=== PATIENT | female | born 1935 | race American Indian/Alaskan Native ===

== ENCOUNTER 2022-07-27 23:51 | Emergency (ER) | payer MEDICARE ==
[2022-07-28] MEDS ORDERED: ONDANSETRON 4 MG/2 ML INJ IV ONE (01:45)
[2022-07-28] MEDS ORDERED: SODIUM CHLORIDE 0.9% 1000 ML 1,000 ML IV ONE (01:45)
[2022-07-28] MEDS ORDERED: MORPHINE 4 MG/1 ML INJ IV ONE (01:45)
[2022-07-28 02:51] LABS: Basophils % (Auto) 0.9 % (0.0-1.8); Eosinophils # (Auto) 0.2 K/mm3 (0.0-0.4); Eosinophils % (Auto) 3.9 % (0.0-4.3); Hematocrit 35.1 % (30.3-42.9); Hemoglobin 11.1 gm/dl (10.1-14.3); Lymphocytes # (Auto) 1.4 K/mm3 (1.2-5.4); Lymphocytes % (Auto) 30.3 % (13.4-35.0); Mean Corpuscular HGB Conc 32 % (30-34); Mean Corpuscular Volume 83 fl (79-97); Monocytes # (Auto) 0.5 K/mm3 (0.0-0.8); Monocytes % (Auto) 9.5 % (0.0-7.3); Platelet Count 283 K/mm3 (140-440); Red Blood Count 4.25 M/mm3 (3.65-5.03); Red Cell Distribution Width 14.4 % (13.2-15.2)
[2022-07-28 03:03] LABS: Alanine Aminotransferase 7 units/L (7-56); Albumin 3.8 g/dL (3.9-5); Blood Urea Nitrogen 12 mg/dL (7-17); Calcium 9.7 mg/dL (8.4-10.2); Hemolysis Index 5
[2022-07-28 03:04] LABS: BUN/Creatinine Ratio 24; Bilirubin,Direct < 0.2 mg/dL (0-0.2)
[2022-07-28 04:03] VITALS: BP 182/69
--- NOTE | 2022-07-28 04:34 | Cat Scan Report ---
CT ABDOMEN AND PELVIS WITH IV CONTRAST INDICATION: pain. Abdominal pain COMPARISON: None available. TECHNIQUE: Axial CT images were obtained through the abdomen and pelvis after 100 mL Omnipaque [address] scans at this location are performed using CT dose reduction for ALARA by means of automated e xposure control. FINDINGS -- ABDOMEN: Lung Bases: 6 mm nodule left lower lobe. Liver: Several small cysts. Gallbladder: Normal. Bile Ducts: Mildly dilated common bile duct measuring 9 mm in diameter.. Pancreas: Mild dilatation of the main pancreatic duct that measures up to 3 mm in diameter. There is slight peripancreatic body/tail atrophy. There is a suspicious hypodensity identified within the head of the pancreas that measures approximately 1.6 cm in diameter. Spleen: Normal. Adrenals: Normal. Right Kidney and Proximal Ureter: Normal. Left Kidney and Proximal Ureter: Normal. Stomach and Bowel: Normal. Lymph Nodes: No significant adenopathy. Aorta: Severe atherosclerotic disease of the abdominal aorta. IVC: IVC filter noted. Additional Findings: None. FINDINGS -- PELVIS: Urinary Bladder and Distal Ureters: Normal. Reproductive Organs: No acute abnormality. Appendix: Normal. Bowel: No acute abnormality. Free Fluid: None. Lymph Nodes: No significant adenopathy. Additional Findings: None. Skeletal System: No acute abnormality. IMPRESSION: 1. Abnormal dilatation of the main pancreatic duct. There is some indistinct hypodensity within the h ead of the pancreas. Underlying mass is difficult to exclude. ERCP would be useful for further evalua tion. In addition there appears to be mild dilatation of the common bile duct. 2. Sigmoid diverticulosis without diverticulitis. 3. Nonspecific 6 mm nodule left lower lobe. INCIDENTAL PULMONARY NODULE RECOMMENDATIONS Solid Nodule size 6-8 mm -- Single - Low Risk Patient: CT at 6-12 months, then consider CT at 18-24 months - High Risk Patient: CT at 6-12 months, then CT at 18-24 months Note These recommendations do not apply to lung cancer screening, patients with immunosuppression, o r patients with known primary cancer. Note Newly detected indeterminate nodule in persons 35 years of age or older. Persons under the age of 35 should not receive follow-up unless there is a known primary cancer. Low Risk Patient -- minimal or absent history of smoking and of other known risk factors. High Risk Patient -- history of smoking or of other known risk factors. Nodule dimensions are average of long and short axes, rounded to the nearest millimeter. Based on 2017 Fleischner Society Guidelines found in Radiology 2017 284:228-243. https://doi.[email or web address] 148/[email or web address] Signer Name: Hiro Caballero MD Signed: 07/28/2022 4:30 AM Workstation Name: [email or web address]
--- NOTE | 2022-07-28 05:30 | Emergency Department Report ---
ED Abdominal Pain HPI - General Chief Complaint: Abdominal Pain Stated Complaint: ABD PAIN/CONSTIPATION PUI?: No Time Seen by Provider: 07/28/22 01:44 Source: patient Mode of arrival: Stretcher Limitations: No Limitations - History of Present Illness Initial Comments: From assisted living. Staff reporting abdominal pain and consipation X 1 week. MD Complaint: abdominal pain -: days(s) Location: LLQ Radiation: none Migration to: no migration Severity scale (0 -10): 5 Quality: aching Consistency: intermittent Improves With: nothing Worsens With: nothing Associated Symptoms: denies: denies other symptoms, nausea, vomiting - Related Data Allergies Allergy/AdvReac Type Severity Reaction Status Date / Time No Known Allergies Allergy Unverified 07/28/22 01:38 ED Review of Systems ROS: Stated complaint: ABD PAIN/CONSTIPATION Other details as noted in HPI Constitutional: denies: chills, fever Eyes: denies: eye pain, eye discharge, vision change ENT: denies: ear pain, throat pain Respiratory: denies: cough, shortness of breath, wheezing Cardiovascular: denies: chest pain, palpitations Endocrine: no symptoms reported Gastrointestinal: denies: abdominal pain, nausea, diarrhea Genitourinary: denies: urgency, dysuria, discharge Musculoskeletal: denies: back pain, joint swelling, arthralgia Skin: denies: rash, lesions Neurological: denies: headache, weakness, paresthesias Psychiatric: denies: anxiety, depression Hematological/Lymphatic: denies: easy bleeding, easy bruising ED Past Medical Hx - Past Medical History Previous Medical History?: Yes Hx Diabetes: Yes Hx Asthma: Yes Hx Dementia: Yes - Surgical History Past Surgical History?: No - Social History Smoking Status: Never Smoker Substance Use Type: None ED Physical Exam - General Limitations: No Limitations General appearance: alert, in no apparent distress - Head Head exam: Present: atraumatic, normocephalic - Eye Eye exam: Present: normal appearance - ENT ENT exam: Present: mucous membranes moist - Neck Neck exam: Present: normal inspection - Respiratory Respiratory exam: Present: normal lung sounds bilaterally. Absent: respiratory distress - Cardiovascular Cardiovascular Exam: Present: regular rate, normal rhythm. Absent: systolic murmur, diastolic murmur, rubs, gallop - GI/Abdominal GI/Abdominal exam: Present: soft, tenderness (llq), normal bowel sounds. Absent: guarding, rebound - Extremities Exam Extremities exam: Present: normal inspection - Back Exam Back exam: Present: normal inspection - Neurological Exam Neurological exam: Present: alert, oriented X3 - Psychiatric Psychiatric exam: Present: normal affect, normal mood - Skin Skin exam: Present: warm, dry, intact, normal color. Absent: rash ED Course Vital Signs 07/27/22 07/28/22 07/28/22 23:52 01:35 01:41 Temperature 98.2 F Pulse Rate 62 Respiratory 18 26 H 20 Rate Blood Pressure 198/77 O2 Sat by Pulse 98 98 98 Oximetry 07/28/22 07/28/22 07/28/22 01:46 02:00 02:16 Temperature Pulse Rate 57 L 63 67 Respiratory 20 21 16 Rate Blood Pressure 163/73 183/81 183/81 O2 Sat by Pulse 99 98 92 Oximetry 07/28/22 07/28/22 07/28/22 02:30 02:46 03:00 Temperature Pulse Rate 57 L 58 L 55 L Respiratory 24 24 16 Rate Blood Pressure 164/84 176/80 179/78 O2 Sat by Pulse 98 97 92 Oximetry 07/28/22 07/28/22 07/28/22 03:16 03:30 03:46 Temperature Pulse Rate 60 63 63 Respiratory 25 H 21 21 Rate Blood Pressure 179/78 187/76 182/69 O2 Sat by Pulse 96 96 97 Oximetry ED Medical Decision Making - Lab Data Result diagrams: 07/28/22 02:11 07/28/22 02:11 - Radiology Data Radiology results: report reviewed, image reviewed - Medical Decision Making normal wbc , ct showed diverticulosis and dialted CBD painc ontrolled, lipase is less than 3 times normal , clinically doesn;t see pancreatitis , will refer to gi Critical care attestation.: If time is entered above; I have spent that time in minutes in the direct care of this critically ill patient, excluding procedure time. ED Disposition Clinical Impression: Abdominal pain, Diverticulosis, Dilated cbd, acquired Disposition: HOME / SELF CARE / HOMELESS Is pt being admited?: No Does the pt Need Aspirin: No Condition: Stable Instructions: Abdominal Pain (ED), Abdominal Pain, Adult, [id number] Referrals: NICHOLE HSU MD [Staff Physician] - 3-5 Days
--- NOTE | 2022-07-30 18:01 | Electrocardiograph Report ---
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
== END 2022-07-28 06:15 | disposition home or self-care (01) ==
LOC: ED 23:51
DX: K57.90 Diverticulosis of intestine, part unspecified, without perforation or abscess without bleeding (principal); K83.1 Obstruction of bile duct; E11.9 Type 2 diabetes mellitus without complications; J45.909 Unspecified asthma, uncomplicated; Z79.899 Other long term (current) drug therapy
CPT/HCPCS: 74177; 96361; 96374; 96375; 99284; J2270; J2405; J7030; Q9967; 36415; 80048; 80076; 82150; 83690; 84484; 85025; 93005

== ENCOUNTER 2022-08-12 10:39 | Emergency (ER) | payer MEDICARE ==
[2022-08-12] MEDS ORDERED: SODIUM CHLORIDE 0.9% 1000 ML 1,000 ML IV ONE (11:28)
--- NOTE | 2022-08-12 12:18 | XRay Report ---
CHEST 1 VIEW 08/12/2022 11:53 AM INDICATION / CLINICAL INFORMATION: Weakness. COMPARISON: None available. FINDINGS: SUPPORT DEVICES: None. HEART / MEDIASTINUM: There is mild cardiomegaly. LUNGS / PLEURA: No significant pulmonary or pleural abnormality. No pneumothorax. ADDITIONAL FINDINGS: No significant additional findings. IMPRESSION: 1. Mild cardiomegaly. Lungs clear. Signer Name: Jett Sagastume Jr, MD Signed: 08/12/2022 12:14 PM Workstation Name: [id number]
[2022-08-12 12:47] LABS: Alanine Aminotransferase 8 units/L (7-56); Albumin 3.8 g/dL (3.9-5); Blood Urea Nitrogen 9 mg/dL (7-17); Calcium 8.9 mg/dL (8.4-10.2); Hemolysis Index 49
[2022-08-12 12:53] LABS: BUN/Creatinine Ratio 15
--- NOTE | 2022-08-12 13:24 | Cat Scan Report ---
CT HEAD WITHOUT CONTRAST INDICATION / CLINICAL INFORMATION: Weakness. TECHNIQUE: Axial imaging performed from the skull apex through the skull base without the use of cont rast. Sagittal and coronal reformatted images. All CT scans at this location are performed using CT dose reduction for ALARA by means of automated exposure control. COMPARISON: None available. FINDINGS: CEREBRAL PARENCHYMA: Mild cortical volume loss and moderate chronic microvascular ischemic changes in the white matter are evident. Chronic lacunar infarct in the left anterior thalamus measures 9 mm. N o large chronic infarct. No acute parenchymal abnormality is appreciated. HEMORRHAGE: None. EXTRA-AXIAL SPACES: Normal in size and morphology for the patient's age. VENTRICULAR SYSTEM: Normal in size and morphology for the patient's age. MIDLINE SHIFT OR HERNIATION: None. CEREBELLUM / BRAINSTEM: No significant abnormality. CALVARIUM: No significant abnormality. ORBITS: Normal as visualized. PARANASAL SINUSES / MASTOID AIR CELLS: Normal as visualized. SOFT TISSUES of HEAD: No significant abnormality. ADDITIONAL FINDINGS: None. IMPRESSION: No acute intracranial abnormality. Chronic findings as described above. Signer Name: Jett Sagastume Jr, MD Signed: 08/12/2022 1:20 PM Workstation Name: [id number]
[2022-08-12 15:05] LABS: INR 0.84 (0.87-1.13)
[2022-08-12 15:36] LABS: Basophils % (Auto) 1.3 % (0.0-1.8); Eosinophils % (Auto) 1.5 % (0.0-4.3); Hematocrit 36.1 % (30.3-42.9); Hemoglobin 11.4 gm/dl (10.1-14.3); Lymphocytes % (Auto) 34.9 % (13.4-35.0); Mean Corpuscular HGB Conc 32 % (30-34); Mean Corpuscular Volume 82 fl (79-97); Monocytes % (Auto) 7.5 % (0.0-7.3); Platelet Count 244 K/mm3 (140-440); Red Blood Count 4.43 M/mm3 (3.65-5.03); Red Cell Distribution Width 14.5 % (13.2-15.2)
[2022-08-12 15:37] LABS: Basophils # (Auto) 0.1 K/mm3 (0.0-0.1); Eosinophils # (Auto) 0.1 K/mm3 (0.0-0.4); Lymphocytes # (Auto) 1.6 K/mm3 (1.2-5.4); Monocytes # (Auto) 0.3 K/mm3 (0.0-0.8)
[2022-08-12] MEDS ORDERED: hydrALAZINE 20 MG/1 ML INJ IV ONE (15:47)
[2022-08-12] MEDS ORDERED: cloNIDine 0.2 MG TAB PO ONE (16:54)
--- NOTE | 2022-08-12 17:01 | Emergency Department Report ---
ED General Adult HPI - General Chief complaint: Weakness Stated complaint: HEADACHE PUI?: No Time Seen by Provider: 08/12/22 11:17 Source: patient, EMS Mode of arrival: Stretcher Limitations: Other - History of Present Illness Initial comments: PT ARRIVING FROM [facility] FOR WEAKNESS, HEADACHE, TROUBLE SEEING OUT OF L EYE. THIS IS PT'S BASELINE PER EMS REPORT. -: Gradual, days(s) Location: head - Related Data Previous Rx's Medication Instructions Recorded Last Taken Type Amoxicillin/K Clav Tab [Augmentin 1 tab PO Q12HR #14 tab 07/28/22 Unknown Rx 875 mg] Allergies Allergy/AdvReac Type Severity Reaction Status Date / Time No Known Allergies Allergy Verified 08/12/22 10:47 ED Review of Systems ROS: Stated complaint: HEADACHE Other details as noted in HPI Constitutional: denies: chills, fever Eyes: denies: eye pain, eye discharge, vision change ENT: denies: ear pain, throat pain Respiratory: denies: cough, shortness of breath, wheezing Cardiovascular: denies: chest pain, palpitations Endocrine: no symptoms reported Gastrointestinal: denies: abdominal pain, nausea, diarrhea Genitourinary: denies: urgency, dysuria, discharge Musculoskeletal: denies: back pain, joint swelling, arthralgia Skin: denies: rash, lesions Neurological: denies: headache, weakness, paresthesias Psychiatric: denies: anxiety, depression Hematological/Lymphatic: denies: easy bleeding, easy bruising ED Past Medical Hx - Past Medical History Previous Medical History?: No Hx Hypertension: No Hx Diabetes: Yes Hx Asthma: Yes Hx Dementia: Yes - Social History Smoking Status: Never Smoker Substance Use Type: None - Medications Home Medications: Home Medications Medication Instructions Recorded Confirmed Last Taken Type Amoxicillin/K Clav Tab [Augmentin 1 tab PO Q12HR #14 tab 07/28/22 Unknown Rx 875 mg] ED Physical Exam - General Limitations: Other General appearance: alert, in no apparent distress - Head Head exam: Present: atraumatic, normocephalic - Eye Eye exam: Present: normal appearance - ENT ENT exam: Present: mucous membranes moist - Neck Neck exam: Present: normal inspection - Respiratory Respiratory exam: Present: normal lung sounds bilaterally. Absent: respiratory distress - Cardiovascular Cardiovascular Exam: Present: regular rate, normal rhythm. Absent: systolic mu rmur, diastolic murmur, rubs, gallop - GI/Abdominal GI/Abdominal exam: Present: soft, normal bowel sounds - Extremities Exam Extremities exam: Present: normal inspection - Back Exam Back exam: Present: normal inspection - Neurological Exam Neurological exam: Present: alert, oriented X3 - Psychiatric Psychiatric exam: Present: normal affect, normal mood - Skin Skin exam: Present: warm, dry, intact, normal color. Absent: rash ED Course Vital Signs 08/12/22 08/12/22 08/12/22 10:45 11:02 12:00 Temperature 98.7 F Pulse Rate 58 L 61 Respiratory 14 11 L Rate Blood Pressure 207/92 Blood Pressure 170/56 [Left] O2 Sat by Pulse 99 97 76 L Oximetry 08/12/22 08/12/22 12:16 16:00 Temperature Pulse Rate 56 L 63 Respiratory 19 18 Rate Blood Pressure 207/92 193/112 Blood Pressure [Left] O2 Sat by Pulse 78 L 98 Oximetry ED Medical Decision Making - Lab Data Result diagrams: 08/12/22 14:39 08/12/22 11:49 - Radiology Data Radiology results: report reviewed, image reviewed - Medical Decision Making work up unremarkable, vss , no distress , hydralazine giiven headct nromal Critical care attestation.: If time is entered above; I have spent that time in minutes in the direct care of this critically ill patient, excluding procedure time. ED Disposition Clinical Impression: Uncontrolled hypertension, Weakness Disposition: 01 HOME / SELF CARE / HOMELESS Is pt being admited?: No Does the pt Need Aspirin: No Condition: Stable Instructions: Hypertension (ED), Managing Your Hypertension Referrals: PRIMARY CARE, [Primary Care Provider] - 3-5 Days
[2022-08-12 18:11] VITALS: BP 192/93
--- NOTE | 2022-08-14 17:19 | Electrocardiograph Report ---
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
== END 2022-08-12 18:11 | disposition home or self-care (01) ==
LOC: ED 10:39
DX: I10 Essential (primary) hypertension (principal); R53.1 Weakness; E11.9 Type 2 diabetes mellitus without complications; J45.909 Unspecified asthma, uncomplicated
CPT/HCPCS: 36415; 70450; 71045; 80053; 82550; 83735; 84484; 85025; 85610; 93005; 96361; 96374; 99285; J0360; J7030